=== PATIENT | male | born 1955 | race Hispanic/Latino ===

== ENCOUNTER 2024-03-08 12:59 | Outpatient (CLI) | payer OTHER | END 2024-03-08 13:00 | disposition home or self-care (01) | LOC: CSHULT 12:59 | PROVIDERS: ATTEND Family Medicine | DX: R01.1 Cardiac murmur, unspecified (principal); I10 Essential (primary) hypertension; I35.8 Other nonrheumatic aortic valve disorders | CPT/HCPCS: 93306 ==